=== PATIENT | female | born 1975 | race Two or more races ===

== ENCOUNTER 2021-03-25 18:19 | Emergency (ER) | payer MEDICAID ==
[~2021-03-25] VITALS: Ht 157.5 cm; Wt 59.1 kg
[2021-03-25] MEDS ORDERED: DIAZEPAM 5 MG TABLET PO ONE (19:30)
[2021-03-25] MEDS ORDERED: KETOROLAC TROMETHAMINE 60 MG/2 ML VIAL IM ONE (19:30)
[2021-03-25] MEDS ORDERED: CYCL10TA17 PO (20:20)
[2021-03-25] MEDS ORDERED: NAPR-1024 PO (20:20)
[2021-03-25] MEDS ORDERED: GABA-1181 PO (20:20)
[2021-03-25 21:16] VITALS: BP 111/64
== END 2021-03-25 22:15 | disposition home or self-care (01) ==
LOC: EMS 18:24
DX: S29.011A Strain of muscle and tendon of front wall of thorax, initial encounter (principal); R07.89 Other chest pain; X58.XXXA Exposure to other specified factors, initial encounter; Y93.89 Activity, other specified; Y92.89 Other specified places as the place of occurrence of the external cause; Y99.8 Other external cause status
CPT/HCPCS: 71045; 96372; 99283; J1885